=== PATIENT | female | born 1975 ===

== ENCOUNTER 2017-11-03 13:38 | Outpatient (CLI) | payer OTHER ==
--- NOTE | 2017-11-03 15:43 | MMO ---
BILATERAL SCREENING MAMMOGRAMS: Date: 11/03/17 HISTORY: Baseline screening evaluation. No prior studies available for comparison. This patient's mammogram was interpreted with the assistance of computer-aided detection. FINDINGS: There is a heterogeneously dense parenchymal pattern, which may lower the sensitivity of mammography. There is a focal asymmetric density seen only on the right MLO projection within the central aspect posterior depth right breast. No dominant mass, suspicious grouping of microcalcifications, or jeremi ectural distortion is seen in either breast. IMPRESSION: BIRADS 0: Incomplete: Need Additional Imaging Evaluation and/or Prior Mammograms for Comparison 3D tomosynthesis is recommended if able to be performed. If this cannot be performed, spot compressio n MLO view right breast in addition to a 90 degree mediolateral view are recommended. The facility will notify patient of need for additional imaging services. POS: [facility]
== END 2017-11-03 13:39 | disposition home or self-care (01) ==
LOC: SCSMAMMO 13:38
PROVIDERS: ATTEND Obstetrics & Gynecology
DX: Z12.31 Encounter for screening mammogram for malignant neoplasm of breast (principal)
CPT/HCPCS: 77067

== ENCOUNTER 2017-11-13 12:49 | Outpatient (CLI) | payer OTHER | END 2017-11-13 12:50 | disposition home or self-care (01) | LOC: BICMAMMO 12:49 | PROVIDERS: ATTEND Obstetrics & Gynecology | DX: R92.2 Inconclusive mammogram (principal); N64.89 Other specified disorders of breast | CPT/HCPCS: G0279 ==